=== PATIENT | female | born 1975 | race Caucasian/White ===

== ENCOUNTER 2017-05-04 15:07 | Emergency (ER) | payer MEDICAID ==
[~2017-05-04] VITALS: Ht 152.4 cm; Wt 73.0 kg
[2017-05-04 16:08] LABS: UA SPECIFIC GRAVITY <=1.005 (1.005-1.035); microscopic required? YES; urine erythrocyte 1+ (NEGATIVE)
[2017-05-04 17:35] VITALS: BP 136/70
== END 2017-05-04 17:35 | disposition home or self-care (01) ==
LOC: ED 15:07
PROVIDERS: Emergency Medicine
DX: N10 Acute pyelonephritis (principal); E11.65 Type 2 diabetes mellitus with hyperglycemia; Z79.4 Long term (current) use of insulin; Z79.84 Long term (current) use of oral hypoglycemic drugs
CPT/HCPCS: 82962; J0696

== ENCOUNTER 2019-01-08 08:23 | Emergency (ER) | payer MEDICAID ==
[~2019-01-08] VITALS: Ht 152.4 cm; Wt 71.7 kg
[2019-01-08 08:31] VITALS: Ht 152.4 cm; Wt 71.7 kg
[2019-01-08 10:22] VITALS: BP 115/71
== END 2019-01-08 10:22 | disposition home or self-care (01) ==
LOC: ED 08:23
DX: N39.0 Urinary tract infection, site not specified (principal); E11.9 Type 2 diabetes mellitus without complications; R68.83 Chills (without fever)

== ENCOUNTER 2019-08-27 15:34 | Emergency (ER) | payer MEDICAID ==
[~2019-08-27] VITALS: Ht 160 cm; Wt 65.3 kg
[2019-08-27 15:38] VITALS: Ht 160 cm; Wt 65.3 kg
[2019-08-27 17:07] LABS: UA SPECIFIC GRAVITY <=1.005 (1.005-1.035); microscopic required? YES; urine erythrocyte 3+ (NEGATIVE)
[2019-08-27 19:03] VITALS: BP 131/80
== END 2019-08-27 19:03 | disposition home or self-care (01) ==
LOC: ED 15:34
PROVIDERS: Emergency Medicine
DX: N39.0 Urinary tract infection, site not specified (principal); E11.9 Type 2 diabetes mellitus without complications
CPT/HCPCS: 82962